=== PATIENT | female | born 1935 | race Caucasian/White ===

== ENCOUNTER → 2016-08-11 | Outpatient (CLI) | payer OTHER ==
[~2016-08-11] MED LIST: ASPI81TA28 PO; ATOR-26 PO; CLOP1TAB15 PO; METO100T14 PO
[2016-08-11 10:29] LABS: ALT/SGPT 34 U/L (12-78); AST/SGOT 21 U/L (15-37); BLOOD UREA NITROGEN 15 mg/dl (7-18); CALCIUM 8.7 mg/dl (8.5-10.1); CARBON DIOXIDE 30 mmol/L (21-32); CHLORIDE 104 mmol/L (98-107); CREATININE 0.86 mg/dl (0.60-1.20); GLUCOSE 109 mg/dl (70-99); POTASSIUM 4.4 mmol/L (3.5-5.1); SODIUM 140 mmol/L (136-145)
[2016-08-11 10:33] LABS: ALB/GLOB RATIO 1.7 (0.9-2); ALKALINE PHOSPHATASE 49 U/L (45-117); CHOLESTEROL 151 mg/dl (0-200); CHOLESTEROL/HDL RATIO 2.6; HDL CHOLESTEROL 57 mg/dl; TRIGLYCERIDES 91 mg/dl (0-150); VERY LOW DENSITY LIPOPROT CALC 18 mg/dl
== END | disposition home or self-care (01) ==
LOC: C.LAB1850 09:21
PROVIDERS: ATTEND Internal Medicine Cardiovascular Disease
DX: E78.5 Hyperlipidemia, unspecified (principal); M81.0 Age-related osteoporosis without current pathological fracture; I10 Essential (primary) hypertension; R73.01 Impaired fasting glucose

== ENCOUNTER → 2017-05-25 | Outpatient (CLI) | payer OTHER ==
--- NOTE | 2017-05-26 15:33 | MAMMOGRAPHY REPORT ---
BILATERAL DIGITAL SCREENING MAMMOGRAM WITH CAD: 05/25/2017 CLINICAL HISTORY: Routine screening. Patient has no complaints. TECHNIQUE: Current study was also evaluated with a Computer Aided Detection (CAD) system. Bilateral CC and MLO views were obtained. COMPARISON: Comparison is made to exams dated: 11/05/2013 mammogram, 03/26/2013 mammogram, 03/12/2013 m ammogram, 02/16/2012 mammogram, 10/06/2009 mammogram, and 09/25/2009 mammogram - [facility] nter. BREAST COMPOSITION: The tissue of both breasts is heterogeneously dense, which may obscure small mas ses. FINDINGS: No suspicious masses, calcifications, or areas of architectural distortion are noted in ei ther breast. There has been no significant interval change compared to prior exams. Bilateral benign -appearing calcifications are not significantly changed. A biopsy marker clip is again noted within the right breast. IMPRESSION: ACR BI-RADS CATEGORY 2: BENIGN There is no mammographic evidence of malignancy. A 1 year screening mammogram is recommended. The pa tient will receive written notification of the results. Approximately 10% of breast cancers are not detected with mammography. A negative mammographic report should not delay biopsy if a clinically suggestive mass is present. Fela Paige M.D. ah/:05/25/2017 15:01:12 Taffy Candy Maker: Dolores BRUSH(Ra)(Nick)(BD), [facility] letter sent: Normal 1/2 BI-RADS Code: ACR BI-RADS Category 2: Benign
== END | disposition home or self-care (01) ==
LOC: C.MAMM 13:28
PROVIDERS: ATTEND Nurse Practitioner Family
DX: Z12.31 Encounter for screening mammogram for malignant neoplasm of breast (principal)

== ENCOUNTER → 2017-09-06 | Outpatient (CLI) | payer OTHER ==
[2017-09-06 09:36] LABS: BASO % 1.2 %; BASO ABS # 0.09 K/uL (0-0.2); EOS % 7.1 %; EOS ABS # 0.53 K/uL (0-0.5); HEMOGLOBIN 15.5 g/dL (12.0-16.0); IG# 0.02 K/uL (0.00-0.02); LYMPH % 18.7 %; MEAN CORPUSCULAR HGB CONC 34.4 g/dl (32-36); MEAN PLATELET VOLUME 11.7 fL (7.4-10.4); MONO % 10.8 %; MONO ABS # 0.81 K/uL (0.11-0.59); NEUT % 61.9 %; NEUT ABS # 4.63 K/uL (1.4-6.5); PLATELET COUNT 155 K/uL (130-400); RED CELL DISTRIBUTION WIDTH CV 13.2 % (11.5-14.5); RED CELL DISTRIBUTION WIDTH SD 42.6 fL (36.4-46.3); WHITE BLOOD COUNT 7.48 K/uL (4.8-10.8)
[2017-09-06 09:49] LABS: ALT/SGPT 35 U/L (12-78); AST/SGOT 23 U/L (15-37); BLOOD UREA NITROGEN 17 mg/dl (7-18); CALCIUM 8.7 mg/dl (8.5-10.1); CARBON DIOXIDE 30 mmol/L (21-32); CREATININE 0.81 mg/dl (0.60-1.20); GLUCOSE 112 mg/dl (70-99); POTASSIUM 3.9 mmol/L (3.5-5.1); SODIUM 137 mmol/L (136-145)
[2017-09-06 10:11] LABS: CHOLESTEROL 154 mg/dl (0-200); LDL CHOLESTEROL CALCULATED 91 mg/dl
== END | disposition home or self-care (01) ==
LOC: C.LAB1850 07:46
PROVIDERS: ATTEND Physician Assistant Medical
DX: I25.10 Atherosclerotic heart disease of native coronary artery without angina pectoris (principal); I10 Essential (primary) hypertension

== ENCOUNTER → 2018-01-11 | Outpatient (CLI) | payer OTHER | END | disposition home or self-care (01) | LOC: C.MAMM 14:57 | PROVIDERS: ATTEND Nurse Practitioner Family | DX: M81.0 Age-related osteoporosis without current pathological fracture (principal); M85.859 Other specified disorders of bone density and structure, unspecified thigh ==

== ENCOUNTER 2024-05-11 23:23 | Observation (INO) ==
--- NOTE | 2024-05-11 23:36 | Emergency Department Note ---
Impression & Plan Palpitations, Sinus pause ED Provider Note NAME: MICHELLE OLSEN AGE: 88 SEX: F : 1935 ARRIVES VIA: Ambulance INFORMANT: Patient ED PROVIDER(S): Marc Perdue DO CHIEF COMPLAINT: Irregular heartbeat HPI: Patient is an 88-year-old female with a past medical history of paroxysmal A-fib, moderate AAS, nonsustained VT, non-Hodgkin's lymphoma, hypertension, and CAD on apixaban who presents to the ER as she felt her heart pounding earlier today. This started just after half time. Lasted about 10 to 15 minutes and resolved. She then had several episodes where she felt woozy for EMS. Per EMS she had 2 episodes of sinus pauses when she felt woozy. Patient denies any headache or change in vision. No chest pain or shortness of breath. No nausea, vomiting, or diarrhea. No dysuria, urgency, or frequency. ADDITIONAL HISTORY OBTAINED: Per HPI Chronic Medical/Social Conditions Affecting Care: Per HPI PAST MEDICAL HISTORY:See Below PAST SURGICAL HISTORY:See Below FAMILY HISTORY:See Below SOCIAL HISTORY:See Below HOME MEDICATIONS:See Below ALLERGIES:See Below VITALS:See Below PHYSICAL EXAMINATION: GENERAL: Sitting up in bed, alert, well appearing, well nourished, no distress, non-toxic EYE EXAM: normal conjunctiva. PERRL and EOM's grossly intact. OROPHARYNX: no exudate, no erythema, lips, buccal mucosa, and tongue normal and mucous membranes are moist NECK: supple, no nuchal rigidity, no adenopathy, non-tender LUNGS: Clear to auscultation. Normal chest wall mechanics HEART: no murmurs, S1 normal and S2 normal ABDOMEN: abdomen soft, non-tender, normo-active bowel sounds, no masses, no rebound or guarding. BACK: Back is symmetrical on inspection and there is no deformity, no midline tenderness, no CVA tenderness. SKIN: no rashes and no bruising UPPER EXTREMITIES: upper extremities are grossly normal. LOWER EXTREMITIES: No pitting edema. NEURO EXAM: Normal sensorium, cranial nerves II-XII grossly intact, normal speech, no gross weakness of arms, no gross weakness of legs. MEDICAL DECISION MAKING: Patient is an 88-year-old female who presents to the ER with above-stated complaint. IV was established and blood work was obtained. Labs showed no significant leukocytosis or anemia. BMP with mild hyponatremia at 132. LFTs and bilirubin was unremarkable. Lipase was normal. Troponin negative. EKG consistent with a sinus rhythm. Chest x-ray was clean. History does appear to be consistent V. tach and A-fib. Was 1 short pulseless on the strip from EMS. Unable to obtain the second strip. With this case was discussed with the hospitalist for further observation overnight. Consults/Care Managements Discussions: Per MDM Triage Nursing notes reviewed. Limited review of prior medical records performed Vital Signs: reviewed and remarkable for no significant abnormalities Differential diagnosis: Cardiac ischemia, aortic dissection, pulmonary embolism, pneumothorax, pneumonia, pericarditis, myocarditis, esophageal rupture, GERD, cholecystitis, pancreatitis, musculoskeletal, as well as other pathologies. ER treatment provided: See below Diagnostics interpreted by me include EKG and cardiac monitoring as listed below: -Cardiac Monitoring: An order was placed for continuous cardiac monitoring. The monitor shows a rate of 80 with sinus rhythm. -ECG: Sinus rhythm rate of 79 Normal axis No PVCs QTc 433 -Laboratory studies:Interpreted by me as stated above in MDM and shown below. Imaging studies: Xrays: As interpreted by me: Portable AP upright 1 view of the chest shows no focal infiltrate CTs show: none Procedures:none Critical Care: None Past Med/Surg History Problem List (Updated 05/12/24 @ 01:39 by Marc Perdue DO) Sinus pause (Acute) Palpitations (Acute) Syncope Auditory disturbance Paroxysmal atrial fibrillation Seizure-like activity Sensorineural hearing loss, bilateral Vague bodily discomfort Nonsustained ventricular tachycardia Moderate aortic stenosis Carotid artery stenosis Nonspecific paroxysmal spell Atherosclerosis Adenopathy Antiplatelet or antithrombotic long-term use Vitamin D deficiency (Chronic) Personal history of lymphoma (Chronic) Osteopenia (Chronic) Osteoarthritis (Chronic) Non-Hodgkin's lymphoma (Chronic) Impaired fasting glucose (Chronic) Hypertension (Chronic) Gastro-esophageal reflux (Chronic) Dyslipidemia (Chronic) Carotid bruit (Chronic) CAD (coronary artery disease) (Chronic) Recurrent UTI (Chronic) Medical History Osteoporosis Coronary artery disease due to calcified coronary lesion Hypertension Hypercholesteremia History of diffuse large B-cell lymphoma Non-Hodgkin lymphoma Bilateral inguinal hernia Asymptomatic carotid artery stenosis Surgical History H/O bilateral inguinal hernia repair (08/16/23) Hx of cardiac catheterization Hx of tonsillectomy History of breast biopsy History of hip replacement, total (2009) Family History Father , age 68 Myocardial infarction Son Diabetes type 1 Mother COPD (chronic obstructive pulmonary disease) Cardiac disorder Brother Cardiac disorder Denies family history of Colon cancer Ovarian cancer Prostate cancer Breast cancer Colorectal cancer Social History Smoking Status: Former smoker Tobacco Type: Cigarettes Age Started Using Tobacco: 18; Age Quit Using Tobacco: 42; packs per day: 1; Cigarettes Per Day: 1 PPD; Second Hand Exposure: No; Do You Dip or Chew Tobacco: No; Hx Alcohol Use: Yes Alcohol type: wine Alcohol Intake Frequency: 4 or More x per/Week Alcohol Intake Frequency Comment: 1-2 glasses daily Hx Substance Use: No Preferred Language: Swedish Communication Ability: Effective Visual Impairment: No Limitations Hearing Ability: Normal Incident Response Analyst Required: No Beliefs That Will Affect Care: None marital status: Current Living Situation: Alone current occupational status: retired How many Children do You have: 4 Feels Safe at Home: Yes Childhood Exposure to Second-Hand Smoke: Yes Diet: gluten free and lactose free caffeine: Yes during the past year weight has: decreased > 10 lbs Dental Care, Regularly: Yes Physical Activity Frequency: Daily Seatbelt Use: always Sunscreen Use: Yes Assistive Devices: Glasses Allergies Allergies Allergy/AdvReac Type Severity Reaction Status Date / Time Iodinated Contrast Media Allergy Severe Anaphylaxis Verified 04/25/24 08:53 gluten Allergy Mild Nausea Verified 04/25/24 08:53 ibuprofen Allergy Mild Rash Verified 04/25/24 08:53 lactose Allergy Mild Nausea Verified 04/25/24 08:53 iodine Allergy Unknown Unknown Verified 04/25/24 08:53 Penicillins Allergy Unknown Unknown Verified 04/25/24 08:53 Sulfa (Sulfonamide Allergy Unknown Unknown Verified 04/25/24 08:53 Antibiotics) Home Meds Home Medications Medication Instructions Recorded Confirmed aspirin 81 mg tablet 81 mg PO QAM 02/19/19 05/12/24 [id number] 5 mg-zeaxanth 1 cap PO QAM 03/16/23 05/12/24 1 mg-bilberry 7.5 mg-herbal capsule ([employer] [facility] Formula) Previous Rx's Medication Instructions Recorded metoprolol tartrate 100 mg tablet 100 mg PO BID #180 tabs 03/14/24 apixaban 2.5 mg tablet 2.5 mg PO BID #180 tabs 03/21/24 metoprolol tartrate 50 mg tablet See Rx Instructions PO DAILY PRN 03/21/24 Ventricular rate >100 bpm #30 tabs atorvastatin 80 mg tablet 80 mg PO QPM #90 tabs 03/27/24 Results & Data (ED) Vital Signs Vital Signs - 24 hr 05/11/24 23:25 05/11/24 23:32 05/11/24 23:43 Temperature 36.5 C Temperature Source Oral Pulse Rate 77 77 Pulse Rate [Right] Respiratory Rate 16 Respiratory Effort / Characteristics Non-Labored Spontaneous Non-Labored Spontaneous Respiratory Depth Normal Blood Pressure 185/84 H Blood Pressure [Right Arm] Blood Pressure Mean 117 Blood Pressure Mean [Right Arm] Blood Pressure Position Sitting Blood Pressure Position [Right Arm] Pulse Oximetry 96 Oxygen Delivery Method Room Air Room Air Sepsis Recent Fever Within 48 Hours No Sepsis New/Unexplained Change in Mental Status N/A Sepsis Action Taken by Nursing No Action Required 05/11/24 23:52 05/12/24 00:52 05/12/24 02:13 Temperature Temperature Source Pulse Rate Pulse Rate [Right] 72 74 Respiratory Rate 16 16 Respiratory Effort / Characteristics Non-Labored Spontaneous Non-Labored Spontaneous Respiratory Depth Normal Normal Blood Pressure Blood Pressure [Right Arm] 160/85 H 160/75 H Blood Pressure Mean Blood Pressure Mean [Right Arm] 110 103 Blood Pressure Position Blood Pressure Position [Right Arm] Lying Pulse Oximetry 97 95 95 Oxygen Delivery Method Room Air Room Air Room Air Sepsis Recent Fever Within 48 Hours Sepsis New/Unexplained Change in Mental Status Sepsis Action Taken by Nursing Laboratory Data 05/11/24 23:24 05/11/24 23:24 Lab Results 05/11/24 Range/Units 23:24 WBC 11.54 H (4.8-10.8) K/ul RBC 5.48 H (4.20-5.40) M/uL Hgb 16.8 H (12.0-16.0) g/dl Hct 48.9 H (37.0-47.0) % MCV 89.2 (80.0-100.0) fL MCH 30.7 (25.0-34.0) pg MCHC 34.4 (32.0-36.0) g/dL RDW Std Deviation 43.2 (36.4-46.3) fL RDW Coeff of Marco A 13.2 (11.5-14.5) % Plt Count 157 (130-400) K/uL MPV 10.6 (9.4-12.4) fL Immature Gran % (Auto) 0.3 % Neut % (Auto) 65.0 % Lymph % (Auto) 18.0 % [place] % (Auto) 12.5 % Eos % (Auto) 3.6 % Baso % (Auto) 0.6 % Neut # (Auto) 7.49 H (1.40-6.50) K/uL Lymph # (Auto) 2.08 (1.20-3.40) K/uL [place] # (Auto) 1.44 H (0.11-0.59) K/uL Eos # (Auto) 0.42 (0.00-0.50) K/uL Baso # (Auto) 0.07 (0.00-0.20) K/uL Immature Gran # (Auto) 0.04 (0.01-0.20) K/uL Sodium 132 L (136-145) mmol/L Potassium 4.3 (3.5-5.1) mmol/L Chloride 98 (98-107) mmol/L Carbon Dioxide 26 (21-32) mmol/L Anion Gap 8 (3-11) BUN 21 (6-23) mg/dl Creatinine 0.69 (0.6-1.2) mg/dl Est Cr Clr Drug Dosing 44.1 ml/min eGFR 84.47 BUN/Creatinine Ratio 30.4 H (10-20) Glucose 118 H (70-99(Fasting)) mg/dl Calcium 9.3 (8.6-10.3) mg/dl Magnesium 2.0 (1.7-2.4) mg/dl Total Bilirubin 1.1 H (0.2-1.0) mg/dl AST 31 (13-39) U/L ALT 30 (7-52) U/L Alkaline Phosphatase 52 (34-104) U/L Troponin I High Sens 7.8 (0-14) pg/ml Total Protein 6.5 (6.0-8.3) gm/dl Albumin 4.6 (3.4-5.0) gm/dl Globulin 1.9 L (2.5-4.0) gm/dl Albumin/Globulin Ratio 2.4 H (0.9-2) Lipase 31 (11-82) U/L Administered Medications Discontinued Medications Aspirin (Aspirin Chew 324 Mg) 324 mg PO NOW STA Stop: 05/12/24 00:31 Last Admin: 05/12/24 00:36 Dose: Not Given Documented By: IRASEMA Sodium Chloride (Nss) 1,000 mls @ 999 mls/hr IV .Q1H1M ONE Stop: 05/12/24 01:55 Last Infusion: 05/12/24 02:04 Dose: Infused Documented By: Admin: 05/12/24 01:03 Dose: 999 mls/hr Documented By: IRASEMA Imaging Data Radiologist's Impression: Chest X-Ray 05/11/24 23:24 Exam(s): XR CXR 1 VIEW EXAM: XR Chest, 1 View CLINICAL HISTORY: Reason for exam: Chest pain, nonspecific. TECHNIQUE: Frontal view of the chest. COMPARISON: XR Chest dated 03/20/24 FINDINGS: Lungs: Unremarkable. No consolidation. Pleural space: Unremarkable. No pneumothorax. Heart: Unremarkable. No cardiomegaly. Mediastinum: Unremarkable. Normal mediastinal contour. Bones/joints: Unremarkable. No acute fracture. IMPRESSION: No evidence of acute cardiopulmonary disease. Electronically signed by: Angela De La Cruz M.D. 05/12/24 01:29 AM Discharge Plan Visit Data Chief Complaint: Arrhythmia/Palpitations Stated Complaint: AFIB, NOT FEELING WELL ED Provider: Marc Perdue Discharge Problem: Palpitations, Sinus pause Forms Stand Alone Forms: My [facility] [employer] Prescriptions Prescriptions: No Action metoprolol tartrate 100 mg tablet 100 mg PO BID Qty: 180 3RF Rx Instructions: Take 100 mg by mouth twice a day. atorvastatin 80 mg tablet 80 mg PO QPM Qty: 90 3RF [employer] Formula 5-1-7.5 mg capsule 1 cap PO QAM aspirin 81 mg tablet 81 mg PO QAM apixaban 2.5 mg tablet 2.5 mg PO BID Qty: 180 3RF metoprolol tartrate 50 mg tablet See Rx Instructions PO DAILY PRN (Reason: Ventricular rate >100 bpm) Qty: 30 2RF Rx Instructions: Metoprolol 50mg po daily as needed for "episodes" of palpitations Referrals Referrals: Filemon Acosta III, CRNP [Primary Care Provider] -
[2024-05-11 23:59] LABS: Basophils # (auto) 0.07 K/uL (0.00-0.20); Basophils % (auto) 0.6 %; Eosinophils # (auto) 0.42 K/uL (0.00-0.50); Eosinophils % (auto) 3.6 %; Hematocrit (blood only) 48.9 % (37.0-47.0); Hemoglobin 16.8 g/dl (12.0-16.0); Immature Granulocytes # (auto) 0.04 K/uL (0.01-0.20); Immature Granulocytes % (auto) 0.3 %; Lymphocytes # (auto) 2.08 K/uL (1.20-3.40); Mean Corpuscular Hemoglobin 30.7 pg (25.0-34.0); Mean Corpuscular Hgb Conc 34.4 g/dL (32.0-36.0); Mean Corpuscular Volume 89.2 fL (80.0-100.0); Mean Platelet Volume 10.6 fL (9.4-12.4); Monocytes # (auto) 1.44 K/uL (0.11-0.59); Monocytes % (auto) 12.5 %; Neutrophils # (auto) 7.49 K/uL (1.40-6.50); Platelet Count 157 K/uL (130-400); RDW Coefficient of Variation 13.2 % (11.5-14.5); RDW Standard Deviation 43.2 fL (36.4-46.3); Red Blood Count 5.48 M/uL (4.20-5.40); White Blood Count 11.54 K/ul (4.8-10.8)
[2024-05-12 00:10] LABS: Albumin Globulin Ratio 2.4 (0.9-2); Albumin Level 4.6 gm/dl (3.4-5.0); BUN Creatinine Ratio 30.4 (10-20); Bilirubin,Total 1.1 mg/dl (0.2-1.0); Calcium 9.3 mg/dl (8.6-10.3); Creatinine Clr Calc Pharmacy 44.1 ml/min; Globulin 1.9 gm/dl (2.5-4.0); Potassium 4.3 mmol/L (3.5-5.1); Total Protein 6.5 gm/dl (6.0-8.3)
[2024-05-12 00:17] LABS: Troponin I High Sensitivity 7.8 pg/ml (0-14)
[2024-05-12] MEDS: ASPIRIN CHEW 324 MG PO STA (00:34)
[2024-05-12] MEDS: SODIUM CHLORIDE 0.9% 1,000 ML IV ONE (01:03)
--- NOTE | 2024-05-12 01:21 | History & Physical Report ---
Date of Service May 12, 2024 Assessment & Plan (1) Palpitations: Plan: Patient with paroxysmal atrial fibrillation, h/o NSVT as well. Sinus pauses x 2 noted by EMS this evening en route to the hospital -Telemetry monitoring -Continue Metoprolol for now -Cardiology consultation appreciated (2) Sinus pause: Plan: Noted by EMS. No pauses noted in ER -Telemetry monitoring -Cardiology consultation appreciated (3) Paroxysmal atrial fibrillation: Plan: Noted. Patient appears to be very symptomatic with her AF -Continue Metoprolol -Continue Apixaban -Continuous cardiac monitoring to assess for episodes of NSVT or sinus pauses, possible indication for pacer placement (4) CAD (coronary artery disease): Plan: No chest pain. No ischemic changes on EKG -Continue 81mg po daily -Continue Atorvastatin 80mg po daily -Continue Metoprolol History of Present Illness Chief Complaint: palpitations Primary Care Provider: Filemon Acosta, III, CHILDREN LIBRARIAN 88yo female with history of Paroxysmal Atrial Fibrillation as well as NSVT (noted on outpatient lunchroom monitor in October 2023) presenting with palpitations. Patient follows with Cardiology. She is compliant with her Metoprolol as well as Apixaban. She reports that she will experience palpitations once a week and sometimes even less on average. This week, however, she has been experiencing more frequent episodes of palpitations. This evening patient woke up in the middle of the night with very strong palpitations and sensation of dizziness as well as shortness of breath. She had several pauses noted on strips by EMS - these were associated with brief episodes of "dizziness" or "feeling funny". Patient denies chest pain, nausea, vomiting, syncope or falls. No edema, weight gain or orthopnea. Allergies Allergy/AdvReac Type Severity Reaction Status Date / Time Iodinated Contrast Media Allergy Severe Anaphylaxis Verified 04/25/24 08:53 gluten Allergy Mild Nausea Verified 04/25/24 08:53 ibuprofen Allergy Mild Rash Verified 04/25/24 08:53 lactose Allergy Mild Nausea Verified 04/25/24 08:53 iodine Allergy Unknown Unknown Verified 04/25/24 08:53 Penicillins Allergy Unknown Unknown Verified 04/25/24 08:53 Sulfa (Sulfonamide Allergy Unknown Unknown Verified 04/25/24 08:53 Antibiotics) Home Medications Medication Instructions Recorded Confirmed Type aspirin 81 mg tablet 81 mg PO QAM 02/19/19 05/12/24 History [id number] 5 mg-zeaxanth 1 cap PO QAM 03/16/23 05/12/24 History 1 mg-bilberry 7.5 mg-herbal capsule ([employer] Formula) metoprolol tartrate 100 mg tablet 100 mg PO BID #180 tabs 03/14/24 05/12/24 Rx apixaban 2.5 mg tablet 2.5 mg PO BID #180 tabs 03/21/24 05/12/24 Rx metoprolol tartrate 50 mg tablet See Rx Instructions PO DAILY PRN 03/21/24 05/12/24 Rx Ventricular rate >100 bpm #30 tabs atorvastatin 80 mg tablet 80 mg PO QPM #90 tabs 03/27/24 05/12/24 Rx Past Med/Surg History Problem List Sinus pause (Acute) Palpitations (Acute) Syncope Auditory disturbance Paroxysmal atrial fibrillation Seizure-like activity Sensorineural hearing loss, bilateral Vague bodily discomfort Nonsustained ventricular tachycardia Moderate aortic stenosis Carotid artery stenosis Nonspecific paroxysmal spell Atherosclerosis Adenopathy Antiplatelet or antithrombotic long-term use Vitamin D deficiency (Chronic) Personal history of lymphoma (Chronic) Osteopenia (Chronic) Osteoarthritis (Chronic) Non-Hodgkin's lymphoma (Chronic) Impaired fasting glucose (Chronic) Hypertension (Chronic) Gastro-esophageal reflux (Chronic) Dyslipidemia (Chronic) Carotid bruit (Chronic) CAD (coronary artery disease) (Chronic) Recurrent UTI (Chronic) Medical History Osteoporosis Coronary artery disease due to calcified coronary lesion stent 1996 Follows with [facility] cardio Hypertension Hypercholesteremia History of diffuse large B-cell lymphoma chemo 2009 Non-Hodgkin lymphoma Following with heme/onc (Dr. 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 Family History Father , age 68 Myocardial infarction Son Diabetes type 1 Mother COPD (chronic obstructive pulmonary disease) Cardiac disorder Brother Cardiac disorder Denies family history of Colon cancer Ovarian cancer Prostate cancer Breast cancer Colorectal cancer Social History Smoking Status: Former smoker Tobacco Type: Cigarettes Age Started Using Tobacco: 18; Age Quit Using Tobacco: 42; packs per day: 1; Cigarettes Per Day: 1 PPD; Second Hand Exposure: No; Do You Dip or Chew Tobacco: No; Hx Alcohol Use: Yes Alcohol type: wine Alcohol Intake Frequency: 4 or More x per/Week Alcohol Intake Frequency Comment: 1-2 glasses daily Hx Substance Use: No Preferred Language: Swiss Communication Ability: Effective Visual Impairment: No Limitations Hearing Ability: Normal Reactor Service Operator Required: No Beliefs That Will Affect Care: None marital status: Current Living Situation: Alone current occupational status: retired How many Children do You have: 4 Feels Safe at Home: Yes Childhood Exposure to Second-Hand Smoke: Yes Diet: gluten free and lactose free caffeine: Yes during the past year weight has: decreased > 10 lbs Dental Care, Regularly: Yes Physical Activity Frequency: Daily Seatbelt Use: always Sunscreen Use: Yes Assistive Devices: Glasses Review of Systems Review of Systems: All systems reviewed & are unremarkable except as noted in HPI & below Physical Exam Physical Exam: General: patient resting comfortably, NAD, non-toxic in appearance, AA&O x 4 Skin: warm, dry, intact, no rashes or lesions HEENT: NC/AT, PERRL, EOMI, anicteric sclera, conjunctiva without injection, external ear normal to inspection and nontender, nares patent, moist mucus membranes, dentition intact, no oropharyngeal lesions, neck supple, trachea midline, no LAD, no thyromegaly, no JVD Heart: +S1/S2, regular, occasional PVC noted on monitor, no m/r/g Lungs: equal air entry bilaterally, no rales/rhonchi/wheezes Abd: +BS, soft, NT/ND, no masses/organomegaly/ascites Ext: warm, 2+ pulses in UE/LE bilaterally, no clubbing/cyanosis or edema Neuro: nonfocal, patient AA&O x 4, speech intact, no facial droop, moving all extremities on command with equal strength 5/5 Results & Data Results & Data Vital Signs (Past 12 Hours) Vital Signs Temp Pulse Pulse Resp BP BP Pulse Ox 05/12/24 00:52 72 16 160/85 H 95 05/11/24 23:52 97 05/11/24 23:43 05/11/24 23:32 77 05/11/24 23:25 36.5 C 77 16 185/84 H 96 O2 Del Method 05/12/24 00:52 Room Air 05/11/24 23:52 Room Air 05/11/24 23:43 Room Air 05/11/24 23:32 05/11/24 23:25 Room Air Laboratory Results Laboratory Results WBC 11.54 K/ul (4.8-10.8) H 05/11/24 23:24 RBC 5.48 M/uL (4.20-5.40) H 05/11/24 23:24 Hgb 16.8 g/dl (12.0-16.0) H 05/11/24 23:24 Hct 48.9 % (37.0-47.0) H 05/11/24 23:24 MCV 89.2 fL (80.0-100.0) 05/11/24 23:24 MCH 30.7 pg (25.0-34.0) 05/11/24 23:24 MCHC 34.4 g/dL (32.0-36.0) 05/11/24 23:24 RDW Std Deviation 43.2 fL (36.4-46.3) 05/11/24 23:24 RDW Coeff of Marco A 13.2 % (11.5-14.5) 05/11/24 23:24 Plt Count 157 K/uL (130-400) 05/11/24 23:24 MPV 10.6 fL (9.4-12.4) 05/11/24 23:24 Immature Gran % (Auto) 0.3 % 05/11/24 23:24 Neut % (Auto) 65.0 % 05/11/24 23:24 Lymph % (Auto) 18.0 % 05/11/24 23:24 [place] % (Auto) 12.5 % 05/11/24 23:24 Eos % (Auto) 3.6 % 05/11/24 23:24 Baso % (Auto) 0.6 % 05/11/24 23:24 Neut # (Auto) 7.49 K/uL (1.40-6.50) H 05/11/24 23:24 Lymph # (Auto) 2.08 K/uL (1.20-3.40) 05/11/24 23:24 [place] # (Auto) 1.44 K/uL (0.11-0.59) H 05/11/24 23:24 Eos # (Auto) 0.42 K/uL (0.00-0.50) 05/11/24 23:24 Baso # (Auto) 0.07 K/uL (0.00-0.20) 05/11/24 23:24 Immature Gran # (Auto) 0.04 K/uL (0.01-0.20) 05/11/24 23:24 Sodium 132 mmol/L (136-145) L 05/11/24 23:24 Potassium 4.3 mmol/L (3.5-5.1) 05/11/24 23:24 Chloride 98 mmol/L (98-107) 05/11/24 23:24 Carbon Dioxide 26 mmol/L (21-32) 05/11/24 23:24 Anion Gap 8 (3-11) 05/11/24 23:24 BUN 21 mg/dl (6-23) 05/11/24 23:24 Creatinine 0.69 mg/dl (0.6-1.2) 05/11/24 23:24 Est Cr Clr Drug Dosing 44.1 ml/min 05/11/24 23:24 eGFR 84.47 05/11/24 23:24 BUN/Creatinine Ratio 30.4 (10-20) H 05/11/24 23:24 Glucose 118 mg/dl (70-99(Fasting)) H 05/11/24 23:24 Calcium 9.3 mg/dl (8.6-10.3) 05/11/24 23:24 Magnesium 2.0 mg/dl (1.7-2.4) 05/11/24 23:24 Total Bilirubin 1.1 mg/dl (0.2-1.0) H 05/11/24 23:24 AST 31 U/L (13-39) 05/11/24 23:24 ALT 30 U/L (7-52) 05/11/24 23:24 Alkaline Phosphatase 52 U/L (34-104) 05/11/24 23:24 Troponin I High Sens 7.8 pg/ml (0-14) 05/11/24 23:24 Total Protein 6.5 gm/dl (6.0-8.3) 05/11/24 23:24 Albumin 4.6 gm/dl (3.4-5.0) 05/11/24 23:24 Globulin 1.9 gm/dl (2.5-4.0) L 05/11/24 23:24 Albumin/Globulin Ratio 2.4 (0.9-2) H 05/11/24 23:24 Lipase 31 U/L (11-82) 05/11/24 23:24 Impressions Chest X-Ray 05/11/24 23:24 Exam(s): XR CXR 1 VIEW EXAM: XR Chest, 1 View CLINICAL HISTORY: Reason for exam: Chest pain, nonspecific. TECHNIQUE: Frontal view of the chest. COMPARISON: XR Chest dated 03/20/24 FINDINGS: Lungs: Unremarkable. No consolidation. Pleural space: Unremarkable. No pneumothorax. Heart: Unremarkable. No cardiomegaly. Mediastinum: Unremarkable. Normal mediastinal contour. Bones/joints: Unremarkable. No acute fracture. IMPRESSION: No evidence of acute cardiopulmonary disease. Electronically signed by: Angela De La Cruz M.D. 05/12/24 01:29 AM ECG Additional Comments: EKG with NSR, no ischemic changes PG Care Time/CCT Total # of Minutes Spent Total Time Spent with Patient: Total time spent is greater than 50% in coordination of care (as documented) at patient's floor/unit and/or counseling patient: Coding Level of Care Code 34373 INT INP/OBS CARE 3/75MIN Diagnoses Palpitations R00.2 Sinus pause I45.5 Paroxysmal atrial fibrillation I48.0 Coronary artery disease involving [place] coronary artery of [place] heart without angina pectoris I25.10 Coronary Disease-Associated Artery/Lesion type: [place] artery [place] vs. transplanted heart: [place] heart Associated angina: without angina (4) CAD (coronary artery disease) Coronary Disease-Associated Artery/Lesion type: [place] artery [place] vs. transplanted heart: [place] heart Associated angina: without angina Qualified Code(s): I25.10 - Atherosclerotic heart disease of [place] coronary artery without angina pectoris
--- NOTE | 2024-05-12 01:30 | XRay Report ---
Exam(s): XR CXR 1 VIEW EXAM: XR Chest, 1 View CLINICAL HISTORY: Reason for exam: Chest pain, nonspecific. TECHNIQUE: Frontal view of the chest. COMPARISON: XR Chest dated 03/20/24 FINDINGS: Lungs: Unremarkable. No consolidation. Pleural space: Unremarkable. No pneumothorax. Heart: Unremarkable. No cardiomegaly. Mediastinum: Unremarkable. Normal mediastinal contour. Bones/joints: Unremarkable. No acute fracture. IMPRESSION: No evidence of acute cardiopulmonary disease. Electronically signed by: Angela De La Cruz M.D. 05/12/24 01:29 AM
[2024-05-12] MEDS ORDERED: ACETAMINOPHEN 325 MG TAB PO PRN (02:37)
--- NOTE | 2024-05-12 08:33 | Electrocardiogram Report ---
Test Reason : Blood Pressure : */* mmHG Vent. Rate : 79 BPM Atrial Rate : 79 BPM P-R Int : 204 ms QRS Dur : 84 ms QT Int : 378 ms P-R-T Axes : 84 30 59 degrees QTcB Int : 433 ms Normal sinus rhythm Normal ECG When compared with ECG of 20-Mar-2024 11:32, No significant change was found Confirmed by Kevin Elliott ([id number]) on 05/12/2024 8:32:52 AM Referred By: Confirmed By: Kevin Elliott
[2024-05-12] MEDS: APIXABAN 2.5 MG TAB PO SCH (08:35)
[2024-05-12] MEDS: METOPROLOL TARTRATE 100 MG TAB PO SCH (08:36)
[2024-05-12] MEDS: ASPIRIN 81 MG ECTAB PO SCH (08:36)
[2024-05-12 10:01] VITALS: RESP 16
[2024-05-12 11:08] VITALS: PULSE 66; TEMP 97.5; O2SAT 98
--- NOTE | 2024-05-12 14:14 | Discharge Summary ---
Discharge Summary Date of Service May 12, 2024 Principal Dx & Hospital Course #1 = Principal Diagnosis (1) Palpitations: Patient with paroxysmal atrial fibrillation, h/o NSVT as well. Sinus pauses x 2 noted by EMS this evening en route to the hospital -Cardiology consultation appreciated - recommend decreasing metoprolol to 100mg AM and 50 mg PM - MCOT monitor, cardiology will arrange patient did not have any recurrence of palpitations while inpatient, without pauses or A-fib on the monitor. Patient very anxious to leave the hospital. Discussed with Dr. Elliott while we would like for patient to stay the night she is low risk and okay with discharge today. He will arrange for cardiology office to call her to arrange the monitor tomorrow. (2) Sinus pause: Noted by EMS. No pauses noted in ER EMS strips not available to review. No pauses on tele while inpatient (3) Paroxysmal atrial fibrillation: Noted. Patient appears to be very symptomatic with her AF -Continue Metoprolol -Continue Apixaban SR on monitor (4) CAD (coronary artery disease): No chest pain. No ischemic changes on EKG -Continue 81mg po daily -Continue Atorvastatin 80mg po daily -Continue Metoprolol Admission HPI Per Admitting Provider 88yo female with history of Paroxysmal Atrial Fibrillation as well as NSVT (noted on outpatient personnel monitor in October 2023) presenting with palpitations. Patient follows with Cardiology. She is compliant with her Metoprolol as well as Apixaban. She reports that she will experience palpitations once a week and sometimes even less on average. This week, however, she has been experiencing more frequent episodes of palpitations. This evening patient woke up in the middle of the night with very strong palpitations and sensation of dizziness as well as shortness of breath. She had several pauses noted on strips by EMS - these were associated with brief episodes of "dizziness" or "feeling funny". Patient denies chest pain, nausea, vomiting, syncope or falls. No edema, weight gain or orthopnea. Discharge Exam General: NAD, VS as above, sitting at the side of the bed, frustrated with still having to be in the hospital Resp: normal respiratory effort, lungs clear to auscultation CV: RRR, no murmur, Abd: normal bowel sounds, non tender, no hepatosplenomegaly Extremities: Moves all extremities, no edema Neuro: A&O x3, Skin: intact, no lesions noted Discharge Plan Discharge Items Patient Disposition: Home - Self-Care Reason For Visit: PALPITATIONS, DIZZINESS Discharge Diagnosis: papitations Activity: Resume your previous activity Non-emergency contact: Primary Care Provider and Dough Sheeter Call non-emergency contact if: you have any medication questions, your symptoms worsen and your pain is worsening Follow-up/Referrals: Antonio Villegas Jr, MD, FACC [Physician] - (f/u for heart monitor ) Filemon Acosta III, CRNP [Primary Care Provider] - Diet: Heart Healthy Addtl Attending Provider Instructions: Ms. Oliveira, You were hospitalized after having palpitations, and possible heart pauses with EMS. Thankfully, that has not recurred while you were here. You were seen by Dr. Elliott who recommended to decrease your metoprolol dose at night to 50mg and to have another heart monitor. Someone from the cardiology office should call you, but if you do not hear from them by Monday please call the number above. Activity: You can do normal everyday activities as your body allows. Take rest breaks if you feel tired. Do not overexert. Stop activity if you have pain, shortness of breath or feel dizzy. Follow-up appointments: Make an appointment with your primary care physician within one week of discharge. A copy of this summary will be sent to them. Every time you see your primary care physician, or any other doctor, bring your medication list, and a list of questions. CONTACT YOUR PRIMARY CARE PROVIDER if you experience any of the following: Shortness of breath or difficulty breathing Fevers or chills Feeling tired with normal activity or experiencing dizziness or fainting Difficulty following your treatment plan, or difficulty taking medications CALL 911 OR GO TO THE EMERGENCY DEPARTMENT if you experience any of the following: Severe abdominal pain or nausea/vomiting Severe chest pain, or chest pain that radiates (moves) to your jaw or arm Sudden, severe shortness of breath or difficulty breathing Thank you for allowing us to participate in your care. Pending Studies at Discharge: No Stand-Alone Forms: My [employer], Smoking Cessation Medications and DC Order Prescriptions: New metoprolol tartrate 50 mg tablet 50 mg PO QPM Qty: 30 0RF Continued atorvastatin 80 mg tablet 80 mg PO QPM Qty: 90 3RF Macular Health Formula 5-1-7.5 mg capsule 1 cap PO QAM aspirin 81 mg tablet 81 mg PO QAM apixaban 2.5 mg tablet 2.5 mg PO BID Qty: 180 3RF metoprolol tartrate 50 mg tablet See Rx Instructions PO DAILY PRN (Reason: Ventricular rate >100 bpm) Qty: 30 2RF Rx Instructions: Metoprolol 50mg po daily as needed for "episodes" of palpitations Changed metoprolol tartrate 100 mg tablet 100 mg PO QAM Qty: 180 3RF Rx Instructions: Take 100 mg by mouth twice a day. Discharge Orders: Discharge Order (Routine); Ordered 05/12/24 Ordered By: Mary Jane Damon Admission Data Admit Date/Time: 05/12/24 01:30 Attending Provider: Tone Cox Admit Provider: Margarita Lee Primary Care Provider: Filemon Acosta III Other Providers: Margarita Lee; Kevin Elliott Hospital Stay Data Consultations 05/12/24 00:49 ED Decision to Admit Stat 05/12/24 10:20 Consult Cardiology Routine Pending Results Patient Have Any Pending Studies at Discharge: No Discharge Instructions Given to Patient (Per Discharging Provider) Ms. Oliveira, You were hospitalized after having palpitations, and possible heart pauses with EMS. Thankfully, that has not recurred while you were here. You were seen by Dr. Elliott who recommended to decrease your metoprolol dose at night to 50mg and to have another heart monitor. Someone from the cardiology office should call you, but if you do not hear from them by Monday please call the number above. Activity: You can do normal everyday activities as your body allows. Take rest breaks if you feel tired. Do not overexert. Stop activity if you have pain, shortness of breath or feel dizzy. Follow-up appointments: Make an appointment with your primary care physician within one week of discharge. A copy of this summary will be sent to them. Every time you see your primary care physician, or any other doctor, bring your medication list, and a list of questions. CONTACT YOUR PRIMARY CARE PROVIDER if you experience any of the following: Shortness of breath or difficulty breathing Fevers or chills Feeling tired with normal activity or experiencing dizziness or fainting Difficulty following your treatment plan, or difficulty taking medications CALL 911 OR GO TO THE EMERGENCY DEPARTMENT if you experience any of the following: Severe abdominal pain or nausea/vomiting Severe chest pain, or chest pain that radiates (moves) to your jaw or arm Sudden, severe shortness of breath or difficulty breathing Thank you for allowing us to participate in your care. Total Time Total Time Spent Total Time Spent (In Minutes): Time spent day of discharge 40 minutes including direct patient care, medication reconciliation, documentation, review of labs and images, and coordination of care. plus additional time spent by my colleague during admission Coding Level of Care Code INP/OBS EV SAME DAY LV 3,85MIN Diagnoses Palpitations R00.2 Sinus pause I45.5 Paroxysmal atrial fibrillation I48.0 Coronary artery disease involving [place] coronary artery of [place] heart without angina pectoris I25.10 Coronary Disease-Associated Artery/Lesion type: [place] artery [place] vs. transplanted heart: ass[place] heart Associated angina: without angina
[2024-05-12 14:35] VITALS: BP 153/69
--- NOTE | 2024-05-12 15:42 | Cardiology Consultation ---
Date of Consultation May 12, 2024 Assessment & Plan (1) Palpitations: (2) Tachy-terri syndrome: (3) Sinus pause: (4) Paroxysmal atrial fibrillation: Plan 88-year-old woman with history of paroxysmal atrial fibrillation with infrequent but bothersome recurrences who presents after subjective palpitations with 2 brief pauses noted by EMS (apparently asymptomatic). Telemetry here was completely benign, no atrial dysrhythmias or pauses. Given that she may have a tendency to tachybradycardia syndrome, in the absence of evidence for recent/current tachydysrhythmia is will reduce her metoprolol dose from metoprolol to tartrate 100 mg twice daily to metoprolol tartrate 100 mg AM/50 mg PM. Continue anticoagulation with apixaban 2.5 mg twice daily. Obtain ambulatory telemetry (MCOT monitor), she will pick this up at the office tomorrow. She was very anxious to leave and was not inclined to stay overnight, given her benign telemetry it seems reasonable to allow discharge on reduced dose of beta- leora with application of ambulatory knitting machine operator automatic. She has previously discussed amiodarone therapy with Dr. Villegas and was not inclined to initiate this. She does understand that an antiarrhythmic and/or pacemaker may be necessary in the future, neither is indicated urgently. Follow-up with Dr. Villegas in 1 month (at which time MCOT results should be available), sooner if symptomatic. History of Present Illness Reason for Consultation: sinus pauses per EMS, ? pacer Requesting Physician: Tone Cox MD Attending Physician: Tone Cox MD History of Present Illness 88-year-old woman with a history of coronary artery disease, paroxysmal atrial fibrillation (apixaban reduced dose/metoprolol), moderate aortic stenosis, who was admitted after experiencing tachypalpitations and noted to have brief pauses by EMS while en route. At recent baseline, she can perform activities of daily living without difficulty, but she has noted several episodes of transient tachypalpitations which were bothersome enough to prompt EMS call. Rhythm strips not available (perhaps seen only on monitor), but EMS noted two 5-8-second pauses with rhythm otherwise sinus. professor of history overnight showed only sinus rhythm at 60-80 bpm without significant ectopy, atrial dysrhythmias, or pauses. She denied chest pain at any time and notes no dyspnea exertion, orthopnea, or PND. No weight change, ankle edema, orthostatic lightheadedness, presyncope, or syncope. Stress echocardiogram November 2023 showed limited area of RCA territory myocardial ischemia at a low to moderate workload. Resting echo had normal systolic function, grade 2 diastolic dysfunction, and mild valvular heart disease (AI/MR/TR). Wall motion abnormalities noted on stress were similar to 2014 pharmacologic stress study. Cardiac event monitor October 2023 showed sinus rhythm at 46-92 bpm with multiple brief pauses (longest 2.3 seconds) and short runs of ventricular tachycardia but no atrial fibrillation. Patient had various symptoms during sinus rhythm without associated ectopy or dysrhythmias. At the time of my evaluation, she felt well and had no somatic complaints. Allergies Allergy/AdvReac Type Severity Reaction Status Date / Time Iodinated Contrast Media Allergy Severe Anaphylaxis Verified 04/25/24 08:53 gluten Allergy Mild Nausea Verified 04/25/24 08:53 ibuprofen Allergy Mild Rash Verified 04/25/24 08:53 lactose Allergy Mild Nausea Verified 04/25/24 08:53 iodine Allergy Unknown Unknown Verified 04/25/24 08:53 Penicillins Allergy Unknown Unknown Verified 04/25/24 08:53 Sulfa (Sulfonamide Allergy Unknown Unknown Verified 04/25/24 08:53 Antibiotics) Home Medications Medication Instructions Recorded Confirmed Type aspirin 81 mg tablet 81 mg PO QAM 02/19/19 05/12/24 History [id number] 5 mg-zeaxanth 1 cap PO QAM 03/16/23 05/12/24 History 1 mg-bilberry 7.5 mg-herbal capsule ([employer] Formula) apixaban 2.5 mg tablet 2.5 mg PO BID #180 tabs 03/21/24 05/12/24 Rx metoprolol tartrate 50 mg tablet See Rx Instructions PO DAILY PRN 03/21/24 05/12/24 Rx Ventricular rate >100 bpm #30 tabs atorvastatin 80 mg tablet 80 mg PO QPM #90 tabs 03/27/24 05/12/24 Rx metoprolol tartrate 100 mg tablet 100 mg PO QAM #180 tabs 05/12/24 05/12/24 Rx metoprolol tartrate 50 mg tablet 50 mg PO QPM #30 tabs 05/12/24 Rx Patient History Medical History Osteoporosis Coronary artery disease due to calcified coronary lesion stent 1996 Follows with [facility] cardio Hypertension Hypercholesteremia History of diffuse large B-cell lymphoma chemo 2009 Non-Hodgkin lymphoma Following with heme/onc (Dr. 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 Family History Father , age 68 Myocardial infarction Son Diabetes type 1 Mother COPD (chronic obstructive pulmonary disease) Cardiac disorder Brother Cardiac disorder Denies family history of Colon cancer Ovarian cancer Prostate cancer Breast cancer Colorectal cancer Social History Smoking Status: Former smoker Tobacco Type: Cigarettes Age Started Using Tobacco: 18; Age Quit Using Tobacco: 42; packs per day: 1; Cigarettes Per Day: 1 PPD; Second Hand Exposure: No; Do You Dip or Chew Tobacco: No; Tobacco Cessation Education Requested by Patient: No Hx Alcohol Use: Yes Alcohol type: wine Alcohol Intake Frequency: 4 or More x per/Week Alcohol Intake Frequency Comment: 1-2 glasses daily Hx Substance Use: No Preferred Language: [place]o Communication Ability: Effective Visual Impairment: No Limitations Hearing Ability: Normal Audit Practice Intern Required: No Beliefs That Will Affect Care: None marital status: Current Living Situation: Alone current occupational status: retired How many Children do You have: 4 Other Information That Helps Us Care for You: No Feels Safe at Home: Yes Safety Concerns: Feels Safe At This Time Childhood Exposure to Second-Hand Smoke: Yes Diet: gluten free and lactose free caffeine: Yes during the past year weight has: decreased > 10 lbs Dental Care, Regularly: Yes Physical Activity Frequency: Daily Seatbelt Use: always Sunscreen Use: Yes Assistive Devices: Glasses Physical Exam Physical Exam: Only white female who appears comfortable. Afebrile. BP mildly hypertensive. Pulse 66 bpm and regular without ectopy. Respirations 16 and unlabored. Skin: no ecchymoses or generalized lesions. HEENT: unremarkable. Neck: JVP at the clavicle at 90 degrees, no carotid bruits. Lungs: clear. Cardiac: regular rhythm, normal S1-2, no obvious murmur. Abdomen: benign. Extremities: no edema, pulses intact. Neurologic: normal affect and conversation, nonfocal. Results & Data Laboratory Results Troponin 7.8. WBC 11.54, hemoglobin 16.8, normal platelet count. Sodium 132, potassium 4.3, BUN 21, creatinine 0.69. Magnesium 2.0. TSH from March 2024 was normal. Diagnostic Findings Patient ECG showed sinus rhythm at 79 bpm and was completely unremarkable. No change compared with prior. Chest x-ray unremarkable. PG Care Time/CCT Total # of Minutes Spent Total Time Spent with Patient: Total time spent is greater than 50% in coordination of care (as documented) at patient's floor/unit and/or counseling patient: Coding Level of Care Code 13297 IN/OBS CONSULT LVL 4,60M Diagnoses Palpitations R00.2 Tachy-terri syndrome I49.5 Sinus pause I45.5 Paroxysmal atrial fibrillation I48.0
[2024-05-12] MEDS ORDERED: ATORVASTATIN 40 MG TAB PO SCH (21:00)
== END 2024-05-12 14:35 | disposition home or self-care (01) ==
LOC: EDINP 23:23 → ED 23:23 → SUATTDRO 05-12 01:30 → 2N 05-12 08:00

== ENCOUNTER 2024-05-20 12:53 | Observation (INO) ==
--- NOTE | 2024-05-20 13:40 | History & Physical Report ---
Date of Service May 20, 2024 Assessment & Plan (1) Tachy-terri syndrome: (2) Syncope: (3) Moderate aortic stenosis: (4) Atrial fibrillation: (5) CAD (coronary artery disease): (6) Mitral regurgitation: Plan 1. Syncope: The patient's episode of syncope correlates well with her episode of sinus arrest. This was in the setting of a conversion pause. Based on her prior symptoms in the likelihood of recurrence I recommended admission to the hospital and placement of a permanent pacemaker. 2. Tachy-terri syndrome: She has episodes of atrial fibrillation which required better control. This may require antiarrhythmic therapy or higher doses of beta blockade. Her medication was recently reduced due to concerns over bradycardia. I think this puts her in a category of patients who benefit from a pacemaker and more aggressive rate control of her atrial fibrillation. 3. Atrial fibrillation: Paroxysmal. Symptomatic. On systemic anticoagulation. We will place the pacemaker and then we can consider more aggressive rate control or antiarrhythmic therapy. 4. Coronary artery disease: She is known to have residual disease in the right coronary. She did have ischemia on exercise treadmill testing. However, few symptoms currently. Unlikely to be a problem at her current workload. Treated medically as the lesion was not felt to be amenable to percutaneous intervention. We will continue her daily aspirin, metoprolol and high-dose atorvastatin. 5. Valvular heart disease: She has an element of mitral regurgitation and aortic stenosis. Neither are critical or severe. Admission and Anticipated Discharge Date Admission Date: May 20, 2024 History of Present Illness Chief Complaint: Syncope, palpitation Primary Care Provider: Filemon Acosta III, MITUL The patient is an 88-year-old woman with a history of coronary artery disease status post percutaneous intervention of the right coronary artery in 1996. Recently she was diagnosed with paroxysmal atrial fibrillation. She notices episodes of palpitations and high heart rates. She was admitted to the hospital for symptoms of palpitations and an episode of syncope. She was felt to have brief periods of sinus arrest in route to the hospital by EMS. In the hospital her dose of beta-blockade was reduced and she was sent home with ambulatory monitoring to better correlate her symptoms and burden of atrial fibrillation. Over the weekend the patient suffered another episode of syncope. This was in the setting of a conversion pause lasting several seconds. The patient did report episodes of palpitation consistent with her paroxysmal atrial fibrillation. She subsequently ended up on the floor by her bed with a injury to the right face. Based on the findings on her ambulatory monitor she was advised to proceed to the hospital for evaluation, but she elected to come to the clinic as an alternative. Currently she is feeling well. Not currently noticing any palpitations or dizziness. Generally speaking she is an active individual who has not reported symptoms angina or limiting dyspnea. Allergies Allergy/AdvReac Type Severity Reaction Status Date / Time Iodinated Contrast Media Allergy Severe Anaphylaxis Verified 05/20/24 11:41 gluten Allergy Mild Nausea Verified 05/20/24 11:41 ibuprofen Allergy Mild Rash Verified 05/20/24 11:41 lactose Allergy Mild Nausea Verified 05/20/24 11:41 iodine Allergy Unknown Unknown Verified 05/20/24 11:41 Penicillins Allergy Unknown Unknown Verified 05/20/24 11:41 Sulfa (Sulfonamide Allergy Unknown Unknown Verified 05/20/24 11:41 Antibiotics) Home Medications Medication Instructions Recorded Confirmed Type aspirin 81 mg tablet 81 mg PO QAM 02/19/19 05/20/24 History dibaoyrs-drj-[id number] 5 mg-zeaxanth 1 cap PO QAM 03/16/23 05/20/24 History 1 mg-bilberry 7.5 mg-herbal capsule (Macular Health Formula) apixaban 2.5 mg tablet 2.5 mg PO BID #180 tabs 03/21/24 05/20/24 Rx metoprolol tartrate 50 mg tablet See Rx Instructions PO DAILY PRN 03/21/24 05/20/24 Rx Ventricular rate >100 bpm #30 tabs atorvastatin 80 mg tablet 80 mg PO QPM #90 tabs 03/27/24 05/20/24 Rx metoprolol tartrate 100 mg tablet 100 mg PO QAM #180 tabs 05/12/24 05/20/24 Rx metoprolol tartrate 50 mg tablet 50 mg PO QPM #30 tabs 05/12/24 05/20/24 Rx Past Med/Surg History Problem List (Updated 05/20/24 @ 13:38 by Drew Byrd MD) Mitral regurgitation Atrial fibrillation Tachy-terri syndrome Sinus pause (Acute) Syncope Auditory disturbance Seizure-like activity Sensorineural hearing loss, bilateral Vague bodily discomfort Nonsustained ventricular tachycardia Moderate aortic stenosis Carotid artery stenosis Nonspecific paroxysmal spell Atherosclerosis Adenopathy Antiplatelet or antithrombotic long-term use Vitamin D deficiency (Chronic) Personal history of lymphoma (Chronic) Osteopenia (Chronic) Osteoarthritis (Chronic) Non-Hodgkin's lymphoma (Chronic) Impaired fasting glucose (Chronic) Hypertension (Chronic) Gastro-esophageal reflux (Chronic) Dyslipidemia (Chronic) Carotid bruit (Chronic) Recurrent UTI (Chronic) Medical History Osteoporosis Coronary artery disease due to calcified coronary lesion stent 1996 Follows with [facility] cardio Hypertension Hypercholesteremia History of diffuse large B-cell lymphoma chemo 2009 Non-Hodgkin lymphoma Following with heme/onc (Dr. 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 Family History Father , age 68 Myocardial infarction Son Diabetes type 1 Mother COPD (chronic obstructive pulmonary disease) Cardiac disorder Brother Cardiac disorder Denies family history of Colon cancer Ovarian cancer Prostate cancer Breast cancer Colorectal cancer Social History Smoking Status: Former smoker Tobacco Type: Cigarettes Age Started Using Tobacco: 18; Age Quit Using Tobacco: 42; packs per day: 1; Cigarettes Per Day: 1 PPD; Second Hand Exposure: No; Do You Dip or Chew Tobacco: No; Hx Alcohol Use: Yes Alcohol type: wine Alcohol Intake Frequency: 4 or More x per/Week Alcohol Intake Frequency Comment: 1-2 glasses daily Hx Substance Use: No Preferred Language: Bruneian Communication Ability: Effective Visual Impairment: No Limitations Hearing Ability: Normal Bell Spinner Required: No Beliefs That Will Affect Care: None marital status: Current Living Situation: Alone current occupational status: retired How many Children do You have: 4 Feels Safe at Home: Yes Childhood Exposure to Second-Hand Smoke: Yes Diet: gluten free and lactose free caffeine: Yes during the past year weight has: decreased > 10 lbs Dental Care, Regularly: Yes Physical Activity Frequency: Daily Seatbelt Use: always Sunscreen Use: Yes Assistive Devices: Glasses Review of Systems Review of Systems: Per HPI. No recent constitutional symptoms such as fevers or chills. Some fatigue that she attributes to starting Eliquis. Physical Exam Physical Exam: She is alert and oriented x3. Mood affect appear normal. She answered all questions appropriately. HEENT: Sclerae are anicteric. Pupils are equal and reactive to light and accommodation. Extraocular movements were intact. There was bruising on the inferolateral portion of the right orbit. Healing ecchymosis on the forehead. Neuro: Cranial nerves intact Lungs: Lungs are clear to auscultation bilaterally. There are no rales wheezes or rhonchi. She has normal respiratory effort without use of accessory muscles. There is normal pulmonary excursion. Cardiac: The rhythm was regular. S1 and S2 were normal. Soft crescendo systolic murmur. The PMI was not markedly displaced on palpation. Abdomen: The abdomen was soft and nontender. Extremities: Patient has bilateral radial pulses that are equal in intensity. There is no evidence cyanosis or clubbing. There was no evidence of significant peripheral edema bilaterally. Skin: There are no rashes noted on examination today. Results & Data Results & Data Diagnostic Findings Exercise echocardiogram 11/14/2023: Abnormal with evidence of inducible ischemia in the right coronary territory. No chest pain. Resting echo demonstrated preserved LV systolic function with ejection fraction of 60-65%. Stage II diastolic dysfunction. [id number] mitral regurgitation. Mild aortic stenosis. PG Care Time/CCT Total # of Minutes Spent Total Time Spent with Patient: Total time spent is greater than 50% in coordination of care (as documented) at patient's floor/unit and/or counseling patient: Coding Level of Care Code 99751 INT INP/OBS CARE 3/75MIN Diagnoses Tachy-terri syndrome I49.5 Syncope R55 Moderate aortic stenosis I35.0 Atrial fibrillation I48.91 Coronary artery disease involving inaja coronary artery of inaja heart without angina pectoris I25.10 Coronary Disease-Associated Artery/Lesion type: inaja artery [place] vs. transplanted heart: inaja heart Associated angina: without angina Mitral regurgitation I34.0 (5) CAD (coronary artery disease) Coronary Disease-Associated Artery/Lesion type: inaja artery [place] vs. transplanted heart: inaja heart Associated angina: without angina Qualified Code(s): I25.10 - Atherosclerotic heart disease of inaja coronary artery without angina pectoris
[2024-05-20] MEDS ORDERED: ALUMINUM/MAGNESIUM SUSP 30 ML UDC PO PRN (13:41)
[2024-05-20] MEDS ORDERED: ONDANSETRON INJ 2 MG/ML 2 ML VIAL IV PRN (13:41)
[2024-05-20] MEDS ORDERED: MAGNESIUM HYDROXIDE SUSP 30 ML UDC PO PRN (13:41)
--- NOTE | 2024-05-20 15:40 | CT Scan Report ---
CT head/brain wo con CLINICAL HISTORY: 88 years-old Female with head trauma. Acute head trauma TECHNIQUE: Multiple axial CT images of the head were obtained without contrast. A dose lowering tech nique was utilized adhering to the principles of ALARA. COMPARISON: CT maxillofacial same day, head CT 09/21/2023 FINDINGS: There is a small amount of acute hemorrhage measuring 1.4 x 0.6 x 0.9 cm is noted along the midline l ayering between the leaflets of the cavum septum pellucidum vergae on image 66 series 4. No definite layering hemorrhage within the lateral ventricles. There is no Midline shift, intracranial mass, hydrocephalus, or acute territorial infarct. Involution al changes with chronic microvascular ischemic disease. The calvarium is intact. Mastoid air cells a re clear. Mild mucosal thickening of the paranasal sinuses. Prior bilateral lens repair. IMPRESSION: 1. Small focus of acute hemorrhage is noted layering along the posterior aspect of the septum pelluci dum. 2. No mass effect, midline shift or hydrocephalus. ACT 112: Negative or not required by law. The above report was generated using voice recognition software. It may contain grammatical, syntax o r spelling errors. Electronically signed by: Tacho Blanchard M.D. 05/20/2024 3:39 PM
--- NOTE | 2024-05-20 15:42 | CT Scan Report ---
MAXILLOFACIAL CT WITHOUT CONTRAST CLINICAL HISTORY: trauma COMPARISON STUDY: Sinus CT June 22, 2006. TECHNIQUE: A maxillofacial CT was performed without IV contrast. Coronal and sagittal reformats were viewed. Automated exposure control was utilized for the study. A dose lowering technique was utiliz ed adhering to the principles of ALARA. FINDINGS: No acute facial bone fractures are identified. Orbital floors are intact. Alignment of the temporomandibular joints is anatomic. There is mild mucosal thickening of the maxillary sinuses, left greater than right. Small air-fluid levels within the right sphenoid and left maxillary sinuses are present. Globes are intact. There is no retrobulbar hematoma. Please note that the head CT will be re ported separately. A small amount of acute intracranial hemorrhage along the posterior aspect of the septum pellucidum is better depicted on that exam. IMPRESSION: 1. No acute facial fractures. 2. Small amount of acute intracranial hemorrhage along the posterior aspect of the septum pellucidum better depicted on the head CT which will be reported separately. ACT 112: Negative or not required by law. Electronically signed by: Isak Michele M.D. 05/20/2024 3:40 PM
[2024-05-20] MEDS: ATORVASTATIN 40 MG TAB PO SCH (20:04)
[2024-05-20] MEDS: METOPROLOL TARTRATE 50 MG TAB PO SCH (20:06)
--- NOTE | 2024-05-20 20:26 | Communication Note ---
Date of Service: May 20, [address] head to have acute intracranial hemorrhage. Repeat evaluation with patient this evening: no headache, visual changes or focal deficits. I spoke with neurosurgery at [facility] who reviewed the images. Likely related to recent syncope/falls. Will repeat CT head to exclude progression and hold anticoagulation for now. Plan to resume eliquis in 2 week. Proceed with pacemaker as planned.
--- NOTE | 2024-05-21 00:22 | CT Scan Report ---
Exam(s): CT HEAD Without Contrast EXAM: CT Head Without Intravenous Contrast CLINICAL HISTORY: Reason for exam: evaluate intracranial hemorrhage for progression. TECHNIQUE: Axial computed tomography images of the head/brain without intravenous contrast. CTDI is 37.94 mGy and DLP is 547.75 mGy-cm. Automated exposure control was utilized for the study. A dose lowering technique was utilized adhering to the principles of ALARA. COMPARISON: Prior head CT from May 20, 2024 at 3:06 PM. FINDINGS: Brain: Small hemorrhage within the posterior septum pellucidum. Moderate nonspecific white matter changes. No edema. Ventricles: Mild ventriculomegaly. Bones/joints: Unremarkable. No acute fracture. Soft tissues: Unremarkable. Sinuses: Unremarkable as visualized. No acute sinusitis. Mastoid air cells: Unremarkable as visualized. No mastoid effusion. IMPRESSION: Stable hemorrhage within the septum pellucidum. Electronically signed by: Paula Riley MD 05/21/24 00:21 AM
[2024-05-21] MEDS: METOPROLOL TARTRATE 100 MG TAB PO SCH (07:32)
[2024-05-21] MEDS ORDERED: ASPIRIN 81 MG ECTAB PO SCH (09:00)
[2024-05-21] MEDS ORDERED: NON-FORMULARY MEDICATION (Aspirin 81 mg tablet) PO SCH (09:00)
--- NOTE | 2024-05-21 14:06 | Pre Anesthesia Assessment ---
Date of Service May 21, 2024 Pre Sedation Assessment Vital Signs Temp Pulse Pulse Resp BP BP Pulse Ox 05/21/24 11:03 36.6 C 64 16 129/66 100 05/21/24 07:28 36.6 C 73 18 150/72 H 98 05/21/24 07:09 66 05/20/24 22:22 36.6 C 68 18 135/74 97 05/20/24 21:49 73 05/20/24 19:21 36.5 C 73 18 144/74 H 96 05/20/24 15:54 O2 Del Method 05/21/24 11:03 Room Air 05/21/24 07:28 Room Air 05/21/24 07:09 05/20/24 22:22 Room Air 05/20/24 21:49 05/20/24 19:21 Room Air 05/20/24 15:54 Room Air Cardiovascular + regular rate Respiratory + respiratory effort normal Pre-Sedation Airway Assessment Smoking Status: Former smoker Hx Sleep Apnea: No Hx Difficult Intubation: No Short, Thick Neck: No Thyromental Distance: > or= 3.5 Finger Breadths Oral Cavity: + WNL Mallampati Class: III ASA: ASA3 Procedure Planning Contraindications for Sedation: none Current Medications Reviewed: Yes Notes The planned sedation has been discussed with the patient. Informed Consent was obtained. I have identified the patient, determined the appropriateness of sedation and have assessed the patient immediately prior to the procedure. All medicine(s) and interventions are by my order.
[2024-05-21] MEDS: WATER, STERILE FOR INJ 10 ML VIAL ONE (15:57)
[2024-05-21] MEDS: LIDOCAINE 1% LOCAL 20 ML VIAL ONE (15:57)
[2024-05-21] MEDS: BUPIVACAINE 0.25% PF 30 ML VIAL ONE (15:57)
[2024-05-21] MEDS: VANCOMYCIN HCL 1000MG/20ML VIAL ONE (15:57)
[2024-05-21] MEDS: ceFAZolin 330 MG/ML 1 GM VIAL ONE ×2 (15:58→15:59)
[2024-05-21] MEDS: fentaNYL citrate PF 100 MCG/2 ML VIAL ONE (16:48)
[2024-05-21] MEDS: MIDAZOLAM HCL 5 MG/ML 1 ML VIAL ONE (16:49)
[2024-05-21] MEDS ORDERED: oxyCODONE HCL IR 5 MG TAB (IMMEDIATE RELEASE) PO PRN (16:54)
--- NOTE | 2024-05-21 16:54 | Post Anesthesia Assessment ---
Date of Service May 21, 2024 Post Sedation Assessment Vital Signs Temp Pulse Pulse Pulse Resp BP BP 05/21/24 15:24 68 05/21/24 15:12 67 05/21/24 11:03 36.6 C 64 16 129/66 05/21/24 07:28 36.6 C 73 18 150/72 H 05/21/24 07:09 66 05/20/24 22:22 36.6 C 68 18 135/74 05/20/24 21:49 73 05/20/24 19:21 36.5 C 73 18 144/74 H Pulse Ox O2 Del Method 05/21/24 15:24 94 Room Air 05/21/24 15:12 05/21/24 11:03 100 Room Air 05/21/24 07:28 98 Room Air 05/21/24 07:09 05/20/24 22:22 97 Room Air 05/20/24 21:49 05/20/24 19:21 96 Room Air Recovery Score Activity: Moves 4 extremities Respiration: Deep Breath/Cough Circulation: +/-20% PreAnes Value Consciousness: Fully Awake Oxygen Saturation: O2 needed for >90% Discharge Sedation Level of Care: Fast Track Phase II Post Sedation Plan On clinical assessment, the patient appears to have tolerated the sedation without complications. Patient is recovering as anticipated. Patient will continue to be monitored by nursing and may be discharged when sedation discharge criteria are met per below protocol. Upon Completions of procedure up to 15 minutes continue every 5 minute vital signs and the P.A.R. score; then discharge to a Phase I or Fast Track to Phase II per the following guidelines: * Discharge Patient to appropriate Phase II area if PAR is 8 or greater or return to pre- procedure baseline. The post - procedure orders will be as directed. * If PAR score is less than 8 or not return to pre-procedure baseline then patient will follow Phase I monitoring till PAR is reached for Phase II. The Phase I may be done in procedure room or may call to secure a Phase I area. * If naloxone or flumazenil are used for reversal, hold in Phase I for continued monitoring from when last reversal dose was given for a minimum of 60 minutes or longer pending the nurse and/or physician discretion of patient condition before discharge to Phase II. Please call the Sedation Physician to re-evaluate and complete post-note for discharge to Phase II area. Do NOT discharge from procedure sedation or Phase 1 until post- sedation evaluation note is complete by procedure /sedation MD Sedation Discharge Instructions to be given to the patient at discharge to home.
--- NOTE | 2024-05-21 16:54 | Electrophysiology Report ---
Date of Service May 21, 2024 Electrophysiology Procedure Electrophysiology Procedure Report Procedure performed: Implantation of dual-chamber permanent pacemaker with left bundle pacing lead Staff hotel security officer: Drew Byrd MD Indication: The patient is an 88-year-old woman with a history of paroxysmal atrial fibrillation, conversion pauses and syncope. She was felt to be a good candidate for a permanent pacemaker due to symptomatic nonreversible sinus node dysfunction. Dual-chamber device was selected as she is currently in sinus rhythm and wished to maintain AV synchrony. Procedure in detail: The patient was informed of the risks benefits and alternatives to the intended procedure and she wished to proceed. She was taken to the electrophysiology suite in a fasting state. A preoperative antibiotic had been administered. The patient was monitored electrocardiographically throughout today's procedure and conscious sedation was administered per protocol. The left upper pectoral area was prepped and draped in usual sterile fashion. This area was anesthetized using subcutaneous administration of a xylocaine solution. An incision was made at this site and carried down to the prepectoralis fascia using sharp dissection. Electrocautery was also employed for dissection as well as for hemostasis. A device pocket was fashioned tissues above the pectoralis muscle. Subsequent to this maneuver the left axillary vein was accessed using modified Seldinger technique. A sheath was placed over guidewire and used to facilitate passage of a guiding catheter for mapping of the interventricular septum. Once an appropriate location was identified a pacing lead was advanced into the interventricular septum until the appropriate electrophysiologic characteristics were obtained. At this point the guiding catheter was removed. The proximal portion of the lead was then sutured the prepectoralis fascia using nonabsorbable suture. A sheath was placed over the remaining guidewire and used to facilitate passage of a pacing lead to the right atrium under fluoroscopic guidance. Adequate sensing and threshold parameters were obtained prior to active fixation of this lead to the endocardial surface. The proximal portion of the leads were then sutured the prepectoral fascia using nonabsorbable suture. The device pocket was irrigated with antibiotic solution. The leads were then attached to the device. The device and leads were then placed in the pocket and pocket was closed in 3 layers of absorbable suture. Steri-Strips and sterile dressing were applied. The device was tested noninvasively prior to conclusion the procedure. The patient tolerated procedure well there no immediate complications. Equipment used: New pulse generator: Caddie [employer]. Model number: [id number] serial number [id number] Right atrial lead: Caddie Supervisor [employer]. Model number: [id number] serial number [id number] Right ventricular lead: Caddie Supervisor [employer]. Model number: 3830 serial number [id number] Measured data: Right atrial lead: P waves measured 3.8 mV. Pacing threshold was 0.75 V at 0.4 ms with a pacing impedance of 798 ohms Right ventricular lead: R waves measured 8.1 mV in the bipolar configuration. Pacing threshold was 0.5 V at 0.4 ms with a pacing impedance of 760 ohms Impression: Successful implantation of dual-chamber pacemaker with left bundle pacing lead [facility] Electrophysiology codes Pacing Procedure 1: Pacin Insert/Replace Pacer A & V PG Moderate Sedation Codes Moderate Sedation Codes Procedure 1: Sedation/Anesthesia: 83092 Mod Sedation by the same physician;Init15 Min Child Age 5 & Up Procedure 2: Sedation/Anesthesia: 52938 Mod Sedation by the same physician; Ea [id number] Minutes
[2024-05-21] MEDS: ACETAMINOPHEN 325 MG TAB PO PRN (17:47)
--- NOTE | 2024-05-21 20:30 | Cardiology Progress Note ---
Date of Service May 21, 2024 Assessment & Plan (1) Tachy-terri syndrome: (2) Syncope: (3) Moderate aortic stenosis: (4) Atrial fibrillation: (5) CAD (coronary artery disease): (6) Mitral regurgitation: Plan 1. Syncope: The patient's episode of syncope correlates well with her episode of sinus arrest. This was in the setting of a conversion pause. 2. 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 No evident complication. 3. Atrial fibrillation: Paroxysmal. Symptomatic. Prior dose of metoprolol was reduced. Will increase this at the time of discharge. 4. Coronary artery disease: She is known to have residual disease in the right coronary. She did have ischemia on exercise treadmill testing. However, few symptoms currently. Unlikely to be a problem at her current workload. Treated medically as the lesion was not felt to be amenable to percutaneous intervention. We will continue her metoprolol and high-dose atorvastatin. 5. Valvular heart disease: She has an element of mitral regurgitation and aortic stenosis. Neither are critical or severe. 6. Intracranial hemorrhage: Stable on repeat CT scan. No overt symptoms. Holding anticoagulation and aspirin for 2 weeks. Admission and Anticipated Discharge Date Admission Date: May 20, 2024 Subjective This afternoon after her device implant the patient stated that she was not feeling well. She had some difficulty characterizing this statement further. There was some mild discomfort at the implant site, but not severe. She denies dizziness lightheadedness. She was ambulatory around the room. No breathing difficulty. Review of Systems Review of Systems: Per HPI. Mild point tenderness at the right lower ribcage. Physical Exam Physical Exam: Alert. Oriented. Answered all questions appropriately. Device implant site without significant swelling. Normal respiratory effort. Normal heart rate and rhythm. Results & Data Vital Signs (Past 12 Hours) Vital Signs Temp Pulse Pulse Pulse Resp BP Pulse Ox 05/21/24 17:50 76 05/21/24 17:50 05/21/24 17:39 74 169/90 H 97 05/21/24 17:13 36.5 C 73 17 177/73 H 98 05/21/24 15:24 68 94 05/21/24 15:12 67 05/21/24 11:03 36.6 C 64 16 129/66 100 O2 Del Method 05/21/24 17:50 05/21/24 17:50 Room Air 05/21/24 17:39 Room Air 05/21/24 17:13 Room Air 05/21/24 15:24 Room Air 05/21/24 15:12 05/21/24 11:03 Room Air PG Care Time/CCT Total # of Minutes Spent Total Time Spent with Patient: Total time spent is greater than 50% in coordination of care (as documented) at patient's floor/unit and/or counseling patient: Coding Level of Care Code None Diagnoses Tachy-terri syndrome I49.5 Syncope R55 Moderate aortic stenosis I35.0 Atrial fibrillation I48.91 Coronary artery disease involving [place] coronary artery of [place] heart without angina pectoris I25.10 Associated angina: without angina Coronary Disease-Associated Artery/Lesion type: [place] artery [place] vs. transplanted heart: [place] heart Mitral regurgitation I34.0 (5) CAD (coronary artery disease) Associated angina: without angina Coronary Disease-Associated Artery/Lesion type: [place] artery [place] vs. transplanted heart: [place] heart Qualified Code(s): I25.10 - Atherosclerotic heart disease of [place] coronary artery without angina pectoris
[2024-05-21] MEDS: dilTIAZem HCL 30 MG TAB PO ONE (21:03)
[2024-05-22 02:37] VITALS: TEMP 97.9
[2024-05-22] MEDS: ceFAZolin 1000MG 1,000 MG/7.5 ML SYR IV ONE (06:12)
[2024-05-22 07:19] VITALS: PULSE 71
[2024-05-22 07:38] VITALS: BP 121/77; RESP 18; O2SAT 97
--- NOTE | 2024-05-22 08:23 | XRay Report ---
XR chest 2V PA/lateral CLINICAL HISTORY: EXACT TIME ORDERED Evaluate for pneumothorax and l TECHNIQUE: 2 views of the chest were obtained. Comparison: Comparison is made to chest radiograph 05/11/2024 FINDINGS: Interval placement of a pacemaker with the leads in satisfactory position. Calcified aortic knob is s een. The lungs are clear. No evidence of pleural effusion or pneumothorax. IMPRESSION: Interval placement of a pacemaker with the leads in satisfactory position. No evidence of pneumothora x. ACT 112: Negative or not required by law. Electronically signed by: Howard Stallings M.D. 05/22/2024 8:21 AM
--- NOTE | 2024-05-22 08:24 | Discharge Summary ---
Date of Service May 22, 2024 Admission HPI Per Admitting Provider The patient is an 88-year-old woman with a history of coronary artery disease status post percutaneous intervention of the right coronary artery in 1996. Recently she was diagnosed with paroxysmal atrial fibrillation. She notices episodes of palpitations and high heart rates. She was admitted to the hospital for symptoms of palpitations and an episode of syncope. She was felt to have brief periods of sinus arrest in route to the hospital by EMS. In the hospital her dose of beta-blockade was reduced and she was sent home with ambulatory monitoring to better correlate her symptoms and burden of atrial fibrillation. Over the weekend the patient suffered another episode of syncope. This was in the setting of a conversion pause lasting several seconds. The patient did report episodes of palpitation consistent with her paroxysmal atrial fibrillation. She subsequently ended up on the floor by her bed with a injury to the right face. Based on the findings on her ambulatory monitor she was advised to proceed to the hospital for evaluation, but she elected to come to the clinic as an alternative. Currently she is feeling well. Not currently noticing any palpitations or dizziness. Generally speaking she is an active individual who has not reported symptoms angina or limiting dyspnea. Principal Diagnosis Tachy-terri syndrome Discharge Exam She is alert and oriented x3. Mood affect appear normal. She answered all questions appropriately. HEENT: Sclerae are anicteric. Pupils are equal and reactive to light and accommodation. Extraocular movements were intact. There was bruising on the inferolateral portion of the right orbit. Healing ecchymosis on the forehead. Neuro: Cranial nerves intact Lungs: Normal respiratory effort. Device implant site without hematoma. Notable ecchymosis without drainage. Cardiac: The rhythm was regular. Extremities: Patient has bilateral radial pulses that are equal in intensity. There is no evidence cyanosis or clubbing. There was no evidence of significant peripheral edema bilaterally. Skin: There are no rashes noted on examination today. ENMT Mallampati Class: III Respiratory normal respiratory effort Cardiovascular Rate/Rhythm: regular rate Discharge Data Allergies Allergy/AdvReac Type Severity Reaction Status Date / Time Iodinated Contrast Media Allergy Severe Anaphylaxis Verified 05/20/24 18:23 gluten Allergy Mild Nausea Verified 05/20/24 18:23 ibuprofen Allergy Mild Rash Verified 05/20/24 18:23 lactose Allergy Mild Nausea Verified 05/20/24 18:23 iodine Allergy Unknown Unknown Verified 05/20/24 18:23 Penicillins Allergy Unknown Unknown Verified 05/20/24 18:23 Sulfa (Sulfonamide Allergy Unknown Unknown Verified 05/20/24 18:23 Antibiotics) Procedures Performed Operation Date: 05/21/24 14:30 Actual Procedures p Pacer with A/V Leads (Dual) - Drew Byrd MD Ordered Studies 05/20/24 13:46 CT face [CT facial bones wo con] Routine CT head/brain wo con Routine 05/20/24 21:28 CT head/brain wo con Routine 05/21/24 08:15 EP Lab Images for PACS ONCE Hospital Course (1) Tachy-terri syndrome: (2) Syncope: (3) Moderate aortic stenosis: (4) Atrial fibrillation: (5) CAD (coronary artery disease): (6) Mitral regurgitation: Plan 1. Syncope: The patient's episode of syncope correlates well with her episode of sinus arrest. This was in the setting of a conversion pause. Status post implantation of dual-chamber permanent pacemaker. 2. Tachy-terri syndrome: This was the indication for pacemaker placement. 3. Atrial fibrillation: Paroxysmal. No noted while monitored on telemetry. Systemic anticoagulation held due to intracranial hemorrhage. Metoprolol increased her old dose of 100 mg in the morning and 150 mg in the evening. 4. Coronary artery disease: She is known to have residual disease in the right coronary. She did have ischemia on exercise treadmill testing. However, few symptoms currently. No chest pain noted while an inpatient. 5. Valvular heart disease: She has an element of mitral regurgitation and aortic stenosis. Neither are critical or severe. 6. Intracranial hemorrhage: This was noted on a CT scan obtained to exclude facial fracture given her outpatient falls. In consultation with the neurosurgical service at [facility] we elected to repeat the study several hours later to exclude progression. This was performed no progression was noted. The recommendation was subsequently made to hold systemic anticoagulation and anti-platelet agents for 2 weeks. She can resume on June 04. The day prior to discharge device interrogation revealed good function of both the atrial and ventricular leads. On the day of discharge a chest x-ray demonstrated stable lead position without pneumothorax or other complication. Total Time Total Time Spent Total Time Spent (In Minutes): 30 Discharge Plan Discharge Items Patient Disposition: Home - Self-Care Reason For Visit: TACHYBRADY SYNDROME Discharge Diagnosis: Tachy-terri syndrome, intracranial hemorrhage Condition on Discharge: Good Activity: Per Instructions section Activity Comment: No lifting left arm above shoulder behind neck for 6 weeks Lifting: No more than 10 pounds Lifting Comment: No more than 10 lb with the left arm Bathing: Keep incision dry Bathing Comment: Keep wound dry and Steri-Strips intact until follow-up in our clinic Exercise/Sports: Rest today Driving/Machine Use: Resume 1 day after discharge Non-emergency contact: Honing Machine Set Up Operator Call non-emergency contact if: your symptoms worsen, your pain is not controlled, you have a fever, your wound has increased drainage and your wound pain has increased Follow-up/Referrals: Filemon Acosta III, CRNP [Primary Care Provider] - 05/24/24 3:40 pm (Hospital follow up scheduled May 24 at 3:40 with MITUL Plata.) Drew Byrd MD [Physician] - 05/23/24 9:30 am (Appointment with cardiology already scheduled for May 23 at 9:30) Diet: Gluten Free and Heart Healthy Addtl Attending Provider Instructions: Do not take Eliquis or aspirin until June 04. May resume usual dose of Eliquis and daily aspirin on June 04 Pending Studies at Discharge: No Stand-Alone Forms: My [facility], Smoking Cessation Medications and DC Order Prescriptions: Continued atorvastatin 80 mg tablet 80 mg PO QPM Qty: 90 3RF [employer] Formula 5-1-7.5 mg capsule 1 cap PO QAM Rx Instructions: Unable to verify OTC meds at this date/time. apixaban 2.5 mg tablet 2.5 mg PO BID Qty: 180 3RF metoprolol tartrate 50 mg tablet See Rx Instructions PO DAILY PRN (Reason: Ventricular rate >100 bpm) Qty: 30 2RF Rx Instructions: Metoprolol 50mg po daily as needed for "episodes" of palpitations. Unable to verify if pt also takes this medication as needed in addition to 100mg at bedtime. metoprolol tartrate 50 mg tablet 50 mg PO QPM Qty: 30 0RF metoprolol tartrate 100 mg tablet 100 mg PO BID aspirin 81 mg Tablet,Delayed Release (Dr/Ec) 81 mg PO QAM Rx Instructions: Unable to verify OTC meds at this date/time. Discharge Orders: Discharge Order (Routine); Ordered 05/22/24 Ordered By: Drew Alonso/Other Patient Handouts: Pacemaker Implant Dc Admission Data Admit Date/Time: 05/20/24 13:49 Attending Provider: Drew Byrd Admit Provider: Drew Byrd Primary Care Provider: Filemon Acosta III Other Interventions: Discharge Summary Assessment (RN) Last Done: 05/22/24 09:31 Coding Level of Care Code 55303 INP/OBS DISCH >30 MIN Diagnoses Tachy-terri syndrome I49.5 Syncope R55 Moderate aortic stenosis I35.0 Atrial fibrillation I48.91 Coronary artery disease involving [place] coronary artery of [place] heart without angina pectoris I25.10 Associated angina: without angina Coronary Disease-Associated Artery/Lesion type: [place] artery [place] vs. transplanted heart: [place] heart Mitral regurgitation I34.0
== END 2024-05-22 11:21 | disposition home or self-care (01) ==
LOC: 2N 13:16 → INTOOBSV 13:49 → 2E 05-21 17:24